=== PATIENT | female | born 1935 | race Caucasian/White ===

== ENCOUNTER 2019-12-31 09:14 | Day surgery (SDC) | payer MEDICARE, SELFPAY ==
[2019-12-31] VITALS (11 sets, daily range): BP systolic 142–181; BP diastolic 59–98; PULSE 55–63; RESP 16–20; O2SAT 89–99; BMI 38.7
--- NOTE | 2019-12-31 | IR_ITS ---
APPROVED REPORT Patient Location: Outpatient Hadoop Engineer: DIANN Ball RT (R) PROCEDURES 1. Removal of Permanent Pacemaker from pocket. 2. Removal of existing ventricular sensing and pacing coil from RV apex. 3. Placement of new ventricular sensing and pacing coil in the right ventricular apex. 4. Replacment of Pacemaker to pocket. INDICATION Sick Sinus Syndrome/Anoop Tachy, Product not fuctional Informed consent was obtained prior to the procedure. COMPLICATIONS None Estimated Blood Loss: Less than 10 mls TECHNIQUE 1% Lidocaine with epinephrine used to anesthetized the left anterior aspect of the chest. Scalpel was used to make the initial cutaneous incision over existing scar and then dissect down into the fascia. The pacemaker was removed from the pocket and set aside in a sponge soaked in antibiotic. The existing right ventricular lead was detatched from the pacemaker. A stylette was inserted throught the lumen of the RV lead, the appropriate tools were used to dislodge the existing RV lead from the right ventricular apex and them removed from the body. The patient was then placed in Trendelenburg position and the subclavian vein was accessed once via the Selinger technique. A 6 [place] sheath was placed under fluoroscopic guidance into the subclavian vein over a wire, The dilator then removed from the sheath. Using fluoroscopic guidance, the ventricular lead was placed into the right ventricular apex, screwed and secured into place. Electronic interrogation proved acceptable thresholds and voltage within the lead. Using 3-0 silk, the ventricular lead was then secured into place. Lead was secured to the facia using the 3-0 silk. Following this, the sheath was pealed away. 1 gram of Ancef was used to flush the pocket. Followed by the pacemaker generator returned to the pocket and secured to the fascia, Monocryl was used to close the subcutaneous layers while lisa were used to close the cutaneous layer. A pressure dressing was placed and the patient was transferred to the postop holding area in stable condition for postoperative care. ANGIOGRAPHIC RESULTS Generator Model: [employer], 2272 Generator Serial No: [id number] RA Lead Model: [employer], [id number] RA Lead Serial No: [id number] Explanted RV Lead Model: [employer], [id number] Explanted RV Lead Serial No: [id number] Implanted RV Lead Model: [facility] IS-1, 4682 Implanted RV Lead Serial No: [id number] Device Measurements: RV Lead: Intrinsic: 7.5 mV Threshold: 0.6V @ 0.4 ms Impedence: 1200 ohms Parameters: Mode: DDDR Base/Max: 60/120ppm IMPRESSION Conclusion 1. Successful Removal of Permanent Pacemaker from pocket. 2. Successful Removal of existing ventricular sensing and pacing coil from RV apex. 3. Successful Placement of new ventricular sensing and pacing coil in the right ventricular apex. 4. Successful Replacment of Pacemaker to pocket. PLAN 1. post op wound care 2. follow up office visit Electronically signed by : Jose Martin Patel, 01/01/2020 13:37:33
[2019-12-31 10:35] LABS: Basophils % 0.6 % (0.1-2.0); Eosinophils # 0.1 K/mm3 (0.0-0.4); Eosinophils % 2.3 % (0.1-12.0); Hematocrit 38.1 % (37.0-47.0); Hemoglobin 12.7 g/dL (12.2-16.2); Lymphocytes # 1.7 K/mm3 (0.7-4.5); Lymphocytes % 27.8 % (10-50); Mean Corpuscular HGB Conc 33.4 g/dL (31.8-35.4); Mean Corpuscular Hemoglobin 33.6 pg (27.0-31.2); Mean Corpuscular Volume 100.5 fl (81-99); Mean Platelet Volume 8.3 fl (7.4-10.4); Monocytes # 0.2 K/mm3 (0.1-1.0); Monocytes % 3.8 % (1.7-9.3); Neutrophils # 4.1 K/mm3 (1.8-7.8); Neutrophils % 65.6 % (37.0-80.0); Platelet Count 214 K/mm3 (142-424); Red Blood Count 3.79 M/mm3 (4.20-5.40); Red Cell Distribution Width 13.8 % (11.5-17.5); White Blood Count 6.2 K/mm3 (4.8-10.8)
[2019-12-31 10:39] LABS: Chloride 95 mmol/L (98-107)
[2019-12-31 10:40] LABS: Potassium 4.3 mmoL/L (3.5-5.1); Sodium 135 mmol/L (136-145)
[2019-12-31 10:42] LABS: Blood Urea Nitrogen 20 mg/dl (7-17); Creatinine Clearance Estimated 65 mL/min (50-200); Estimated Glomerular Filt Rate 60 ml/min (>60); GFR (African American) 72 ML/MIN (>60)
[2019-12-31 10:43] LABS: Anion Gap 10.3 mEq/L (5-15); Calcium 8.8 mg/dl (8.4-10.2); Carbon Dioxide 34 mmol/L (22.0-30.0); Glucose 105 mg/dl (74-100)
--- NOTE | 2019-12-31 13:35 | XR_ITS ---
PROCEDURE: XR CHEST PORTABLE CLINICAL INDICATION: Confirm pacemaker/AID placement COMPARISON: No exams were available for comparison FINDINGS: Bipolar pacemaker is present from left subclavian approach. The leads are in satisfactory position on the AP view of the chest. There is mild cardiomegaly without failure. Right hemidiaphragm is elevated. Left lung is clear. IMPRESSION: Pacemaker in good position without evidence of pneumothorax Dictated by: Kamlesh Laureano MD 12/31/2019 14:29 Electronically signed by Kamlesh Laureano MD in [place] 12/31/2019 14:29
== END 2019-12-31 15:03 | disposition home or self-care (01) ==
LOC: CATHLAB 09:19
PROVIDERS: PCP Family Medicine; Visit Provider Internal Medicine
DX: T82.110A Breakdown (mechanical) of cardiac electrode, initial encounter (principal); Z45.018 Encounter for adjustment and management of other part of cardiac pacemaker; I49.5 Sick sinus syndrome
CPT/HCPCS: 33216; 71045; 80048; 85025; C1898